=== PATIENT | male | born 1975 | race Two or more races ===

== ENCOUNTER 2020-09-12 12:15 | Emergency (ER) | payer MEDICAID ==
[~2020-09-12] VITALS: Ht 172.7 cm; Wt 78.7 kg
[2020-09-12 12:20] VITALS: BP 117/77
--- NOTE | 2020-09-12 12:57 | NUR ---
PICKER: PT TO ROOM FROM DENNIS SAHA
[2020-09-12] MEDS ORDERED: hydrOXyzine 50MG TABLET ONE (13:19)
--- NOTE | 2020-09-12 15:24 | NUR ---
Patient given discharge instructions and they have confirmed that they understand the instructions. Patient ambulatory with steady gait.
== END 2020-09-12 15:25 | disposition home or self-care (01) ==
LOC: ED 15:10
DX: F41.1 Generalized anxiety disorder (principal); F51.04 Psychophysiologic insomnia; F17.210 Nicotine dependence, cigarettes, uncomplicated
CPT/HCPCS: 99283; 99406; Q0177

== ENCOUNTER 2021-02-12 11:28 | Emergency (ER) | payer MEDICAID ==
[~2021-02-12] VITALS: Ht 172.7 cm; Wt 72.0 kg
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
--- NOTE | 2021-02-12 12:00 | NUR ---
VIDHI DYNAMOTOR REPAIRER AT BEDSIDE FOR EVALUATION
[2021-02-12] MEDS ORDERED: OLANZAPINE 5 MG TABLET ONE (12:55)
[2021-02-12] MEDS ORDERED: OLANZAPINE 5 MG TABLET PO SCH (13:00)
[2021-02-12 13:07] LABS: BASOPHILS % (AUTO) 1 % (0-1); EOSINOPHILS % (AUTO) 1 % (1-7); LYMPHOCYTES % (AUTO) 23 % (22-44); MEAN CORPUSCULAR HEMOGLOBIN 29.9 pg (27.5-34.5); MEAN CORPUSCULAR HGB CONC 33.2 g/dL (33.2-36.2); MEAN PLATELET VOLUME 8.7 fL (7.4-10.4); MONOCYTES % (AUTO) 15 % (2-9); NEUTROPHILS % (AUTO) 61 % (42-75); PLATELET COUNT 327 x10^3/uL (130-400); RED BLOOD COUNT 4.56 x10^6/uL (4.38-5.82); RED CELL DISTRIBUTION WIDTH 12.8 % (9.4-14.8)
--- NOTE | 2021-02-12 13:07 | NUR ---
PT UP TO BATHROOM FOR URINE SAMPLE, PT FORGOT TO URINATE IN CUP. URINAL PROVIDED.
[2021-02-12 13:08] VITALS: BP 140/85
[2021-02-12 13:08] LABS: MD NO
[2021-02-12 13:20] LABS: ALBUMIN 3.5 g/dL (3.4-5.0); ANION GAP 4 mmol/L (5-15); CALCIUM 8.6 mg/dL (8.5-10.1); CHLORIDE 105 mmol/L (98-107)
[2021-02-12 13:22] LABS: ALANINE AMINOTRANSFERASE 30 U/L (12-78); ALKALINE PHOSPHATASE 51 U/L (45-117); BILIRUBIN,TOTAL 0.5 mg/dL (0.2-1.0); CREATININE 0.84 mg/dL (0.7-1.3); SALICYLATE LEVEL < 1.7 mg/dL (2.8-20.0)
--- NOTE | 2021-02-12 13:48 | NUR ---
RAPID COVID SENT TO LAB
[2021-02-12 14:03] LABS: BENZODIAZEPINE SCREEN, URINE Negative (Negative); CANNABINOID SCREEN, URINE Negative (Negative); COCAINE SCREEN, URINE Negative (Negative); METHADONE SCREEN, URINE Negative (Negative); OPIATE SCREEN, URINE Negative (Negative)
[2021-02-12 14:07] LABS: AMPHETAMINE SCREEN, URINE Positive (Negative); BARBITURATE SCREEN, URINE Negative (Negative)
--- NOTE | 2021-02-12 15:04 | NUR ---
report from Colleen BREWER
--- NOTE | 2021-02-12 15:34 | NUR ---
report given to carole rodriguez
== END 2021-02-12 15:57 ==
LOC: ED 13:29
DX: F15.10 Other stimulant abuse, uncomplicated (principal); Z20.822 Contact with and (suspected) exposure to COVID-19; R45.851 Suicidal ideations; F32.9 Major depressive disorder, single episode, unspecified; R44.0 Auditory hallucinations; F17.200 Nicotine dependence, unspecified, uncomplicated
CPT/HCPCS: 36415; 80053; 80299; 80307; 80320; 80329; 85025; 87426; 99285; G0480

== ENCOUNTER 2021-02-12 14:09 | Inpatient (IN) | payer MEDICAID ==
[~2021-02-12] VITALS: Ht 172.7 cm; Wt 79.2 kg
[2021-02-12] MEDS ORDERED: ONDANSETRON ODT 4 MG PO PRN (14:30)
[2021-02-12] MEDS ORDERED: POLYETHYLENE GLYCOL 17 GM PACKET PO PRN (14:30)
[2021-02-12] MEDS ORDERED: DOCUSATE 100 MG CAPSULE PO PRN (14:30)
[2021-02-12] MEDS ORDERED: BISACODYL 10 MG SUPP PR PRN (14:30)
[2021-02-12 16:09] VITALS: BP 136/95
[2021-02-12] MEDS ORDERED: PLEASE ENTER HEIGHT AND WEIGHT MC SCH (16:30)
[2021-02-12 17:13] LABS: MICROSCOPIC NOT IND
[2021-02-12 18:17] VITALS: BP 105/71
[2021-02-12] MEDS ORDERED: QUETIAPINE 25MG TABLET PO PRN (18:30)
[2021-02-12] MEDS: LORazepam 1MG TABLET PO PRN (18:42)
[2021-02-13 07:02] LABS: CHOL/HDL RATIO 1.5; FREE T4 (FREE THYROXINE) 1.07 ng/dL (0.76-1.46); LDL/HDL RATIO 0.4 (0.5-3.0)
[2021-02-13 07:48] VITALS: BP 117/79
[2021-02-13 07:56] VITALS: BP 117/79
[2021-02-13] MEDS: LORazepam 1MG TABLET PO PRN ×2 (11:26→17:40)
[2021-02-13] MEDS ORDERED: ALBUTEROL HFA 90 MCG/SPRAY INH PRN (12:00)
[2021-02-13] MEDS: BENZONATATE 100 MG CAPSULE PO PRN (19:13)
[2021-02-13 19:23] VITALS: BP 109/81
[2021-02-13] MEDS: OLANZAPINE 5 MG TABLET PO SCH (20:09)
[2021-02-13] MEDS: ACETAMINOPHEN 325 MG TABLET PO PRN (20:09)
[2021-02-14 07:52] VITALS: BP 119/85
[2021-02-14] MEDS: FLUOXETINE 10 MG CAP PO SCH (08:46)
[2021-02-14] MEDS: LORazepam 1MG TABLET PO PRN ×2 (08:46→20:02)
[2021-02-14] MEDS: OLANZAPINE 5 MG TABLET PO SCH ×2 (08:46→20:45)
[2021-02-14] MEDS: BENZONATATE 100 MG CAPSULE PO PRN (08:57)
[2021-02-14 19:37] VITALS: BP 112/75
[2021-02-15] MEDS: BENZONATATE 100 MG CAPSULE PO PRN (02:28)
[2021-02-15 07:59] VITALS: BP 107/73
[2021-02-15] MEDS: OLANZAPINE 5 MG TABLET PO SCH ×2 (09:35→20:02)
[2021-02-15] MEDS: FLUOXETINE 10 MG CAP PO SCH (09:35)
[2021-02-15] MEDS: TRAZODONE 50MG TABLET PO PRN (20:02)
[2021-02-15] MEDS: ACETAMINOPHEN 325 MG TABLET PO PRN (20:07)
[2021-02-15 20:45] VITALS: BP 125/80
[2021-02-16 07:40] VITALS: BP 116/68
[2021-02-16] MEDS: OLANZAPINE 5 MG TABLET PO SCH (09:01)
[2021-02-16] MEDS: FLUOXETINE HCL 20 MG CAPSULE PO SCH (09:01)
[2021-02-16 19:30] VITALS: BP 102/73
[2021-02-16] MEDS: ACETAMINOPHEN 325 MG TABLET PO PRN (20:29)
[2021-02-16] MEDS: TRAZODONE 50MG TABLET PO PRN (20:29)
[2021-02-16] MEDS: OLANZAPINE 10 MG TABLET PO SCH (20:29)
[2021-02-17 07:18] VITALS: BP 102/73
[2021-02-17] MEDS: FLUOXETINE HCL 20 MG CAPSULE PO SCH (08:52)
[2021-02-17] MEDS: LORazepam 1MG TABLET PO PRN (17:35)
[2021-02-17 19:30] VITALS: BP 109/72
[2021-02-17] MEDS: TRAZODONE 50MG TABLET PO PRN (20:04)
[2021-02-17] MEDS: OLANZAPINE 10 MG TABLET PO SCH (20:04)
[2021-02-17] MEDS: ACETAMINOPHEN 325 MG TABLET PO PRN (20:05)
[2021-02-18 07:55] VITALS: BP 108/70
[2021-02-18] MEDS: FLUOXETINE HCL 20 MG CAPSULE PO SCH (08:32)
[2021-02-18] MEDS: ACETAMINOPHEN 325 MG TABLET PO PRN ×2 (08:39→17:49)
[2021-02-18] MEDS: LORazepam 1MG TABLET PO PRN (16:49)
[2021-02-18 19:34] VITALS: BP 113/69
[2021-02-18] MEDS: OLANZAPINE 10 MG TABLET PO SCH (20:21)
[2021-02-18] MEDS: TRAZODONE 50MG TABLET PO PRN (20:21)
[2021-02-19 07:35] VITALS: BP 108/72
[2021-02-19] MEDS: FLUOXETINE HCL 20 MG CAPSULE PO SCH (08:29)
[2021-02-19] MEDS: LORazepam 1MG TABLET PO PRN ×2 (15:11→20:51)
[2021-02-19 18:37] VITALS: BP 95/62
[2021-02-19] MEDS: OLANZAPINE 10 MG TABLET PO SCH (20:51)
[2021-02-19] MEDS: TRAZODONE 50MG TABLET PO PRN (20:51)
[2021-02-19] MEDS: ACETAMINOPHEN 325 MG TABLET PO PRN (20:52)
[2021-02-20 07:53] VITALS: BP 104/66
[2021-02-20] MEDS: FLUOXETINE HCL 20 MG CAPSULE PO SCH (08:37)
[2021-02-20] MEDS ORDERED: BENZ-17 PO (13:34)
[2021-02-20] MEDS ORDERED: TRAZ50TA66 PO (13:34)
[2021-02-20] MEDS ORDERED: OLAN10TA9 PO (13:34)
[2021-02-20] MEDS ORDERED: FLUO20CA23 PO (13:34)
[2021-02-20] MEDS ORDERED: ALBU18HF INH (13:34)
[2021-02-20] MEDS ORDERED: HYDR50CA2 PO (13:39)
[2021-02-20] MEDS ORDERED: HYDROXYZINE PAMOATE 50MG CAP PO PRN (14:00)
== END 2021-02-20 14:47 | disposition home or self-care (01) | DRG 885 ==
LOC: 3E 15:48
PROVIDERS: ADMIT Psychiatry & Neurology Psychosomatic Medicine; ATTEND Psychiatry & Neurology Psychosomatic Medicine
DX: F31.5 Bipolar disorder, current episode depressed, severe, with psychotic features (principal); F10.239 Alcohol dependence with withdrawal, unspecified; F15.20 Other stimulant dependence, uncomplicated; F41.8 Other specified anxiety disorders; F17.210 Nicotine dependence, cigarettes, uncomplicated; Z76.5 Malingerer [conscious simulation]; Z79.899 Other long term (current) drug therapy; Z88.8 Allergy status to other drugs, medicaments and biological substances; Z59.0 Homelessness
CPT/HCPCS: 36415; 71045; 80061; 81003; 84439; 84443; 93005